=== PATIENT | female | born 1985 | race Caucasian/White ===

== ENCOUNTER 2023-07-07 18:03 | Emergency (ER) | payer SELFPAY ==
[2023-07-07 18:45] VITALS: BP 123/81; PULSE 84; RESP 16; TEMP 36.9; O2SAT 99; BMI 27.6
[2023-07-07 19:18] VITALS: BP 123/81; PULSE 84; RESP 16; TEMP 36.9; O2SAT 99
--- NOTE | 2023-07-07 19:27 | EXP.UTC ---
Discharge Plan Disposition Patient Disposition: Home, Self-Care Condition: Good Prescriptions Prescriptions: New benzonatate 100 mg capsule 100 mg PO TID PRN (Reason: cough) Qty: 30 0RF methylprednisolone [Medrol (Jose)] 4 mg tablets,dose pack See Rx Instructions .Route .COMPLEX 6 Days Qty: 21 0RF Rx Instructions: taper pack; amoxicillin-pot clavulanate 875-125 mg Tablet 1 tab PO Q12H Qty: 20 0RF guaifenesin [Mucinex] 600 mg tablet extended release 12hr 1,200 mg PO BID PRN (Reason: cough) Qty: 20 0RF Referrals Follow up/Referrals: Provider,Referral, MD [Primary Care Provider] - See instructions Activity Restrictions/Add. Instructions Additional Instructions/Restrictions: *Monitor Temp, Over the counter Motrin or Tylenol as directed/as needed Tylenol every 4 hours and Motrin every 6 hours (as long as your family doctor has told you that you can take it) for fever or pain. and straight to ER if unable to lower temp less than 101.0 after medication given *Warm salt water gargles may help to soothe the throat *Throat Lozenges? *Warm fluids like tea with honey may help to soothe the throat? *Sleep elevated *Humidifier/Vaporizer *Take medication as prescribed Follow up IMMEDIATELY for new or worsening symptoms or no Noticeable improvement over the next 48-72 hours. 911 for difficulty breathing or swallowing Clinical Impressions Clinical Impression: Sinusitis Qualifiers: Sinusitis location: unspecified location Chronicity: unspecified Qualified Code(s): J32.9 - Chronic sinusitis, unspecified Instructions Patient Instructions: Sinusitis, DI for Sinusitis Discharge ED Provider: Tyra Dyer [facility] [place] General Stated complaint: possible sinus congestion Mode of Arrival: Ambulatory Source of Information: Patient Limitations: No Limitations Time Seen by Provider: 07/07/23 19:27 Description of Symptoms (Recalled from Triage Doc. by RN): PATIENT C/O SINUS PRESSURE/DRAINAGE AND COUGH X 1 WEEK HEENT Symptoms (Recalled from RN notes): Yes Resp Symptoms (Recalled from RN notes): No Skin Symptoms (Recalled from RN notes): No MS Symptoms (Recalled from RN notes): No Functional Status (Recalled from RN notes): WNL History of Present Illness Provider Complaint: Patient states that for the last week she has been having sinus pain and pressure along with dry cough states that she thinks she may have a sinus infection that is trying to move into her chest area so she came in to get checked Related Data Previous Rx's Medication Instructions Recorded amoxicillin 875 mg-potassium 1 tab PO Q12H #20 tabs 07/07/23 clavulanate 125 mg tablet benzonatate 100 mg capsule 100 mg PO TID PRN cough #30 caps 07/07/23 guaifenesin 600 mg tablet, 1,200 mg PO BID PRN cough #20 tabs 07/07/23 extended release 12 hr (Mucinex) methylprednisolone 4 mg tablets in See Rx Instructions .Route 07/07/23 a dose pack (Medrol (Jose)) .COMPLEX 6 days #21 tabs Allergies Allergy/AdvReac Type Severity Reaction Status Date / Time No Known Allergies Allergy Verified 07/07/23 18:54 Worker's Comp Is this a Worker's Comp case?: No [facility] Disclaimer: The information contained in this section may have been updated after the patient was seen, as this information can be updated by other users. Medical History (Updated 07/07/23 @ 19:32 by Tyra Dyer APRN) Anxiety Depression Endometriosis Endometriosis determined by laparoscopy Social History Smoking Status: Unknown if ever smoked alcohol intake: never current occupational status: employed Travel in the last 8 weeks: None ROS Obtained: Yes All systems reviewed & no additional complaints except as documented and Yes Systems reviewed as appropriate & no additional complaints except as documented Constitutional Constitutional: Reports system reviewed and no additional complaints, except as documented and Report
[2023-07-07 19:40] LABS: UTC Pregnancy Test, Urine Negative (Negative)
== END 2023-07-07 19:44 | disposition home or self-care (01) ==
PROVIDERS: Emergency Provider Nurse Practitioner
DX: J01.90 Acute sinusitis, unspecified (principal); R05.9 Cough, unspecified; R09.81 Nasal congestion; R09.82 Postnasal drip
CPT/HCPCS: 81025; 99204; 99212; G0463

== ENCOUNTER 2023-08-11 08:47 | Emergency (ER) | payer SELFPAY ==
[2023-08-11 09:05] VITALS: BP 138/81; PULSE 95; RESP 20; TEMP 36.9; O2SAT 99; BMI 26.2
--- NOTE | 2023-08-11 09:10 | EXP.UTC ---
Discharge Plan Disposition Patient Disposition: Home, Self-Care Condition: Good Prescriptions Prescriptions: New methylprednisolone 4 mg Tablets,Dose Pack 4 mg PO DIRECTED 6 Days Qty: 21 0RF Rx Instructions: Take 1 pack as directed for 6 days No Action benzonatate 100 mg capsule 100 mg PO TID PRN (Reason: cough) Qty: 30 0RF methylprednisolone [Medrol (Jose)] 4 mg tablets,dose pack See Rx Instructions .Route .COMPLEX 6 Days Qty: 21 0RF Rx Instructions: taper pack; amoxicillin-pot clavulanate 875-125 mg Tablet 1 tab PO Q12H Qty: 20 0RF guaifenesin [Mucinex] 600 mg tablet extended release 12hr 1,200 mg PO BID PRN (Reason: cough) Qty: 20 0RF Referrals Follow up/Referrals: Provider,Referral, MD [Primary Care Provider] - See instructions Activity Restrictions/Add. Instructions Additional Instructions/Restrictions: Try to identify and avoid contact with the offending substance. Don't start the oral steroids until tomorrow. Follow up with your regular doctor. GO TO THE ER FOR ANY WORSENING SYMPTOMS OR CONCERNS Clinical Impressions Clinical Impression: Allergic reaction Stand Alone Forms Stand Alone Forms: Work/School Release Instructions Patient Instructions: DI for General Allergic Reactions, Dexamethasone Injection, Methylprednisolone Discharge ED Provider: Shawn Baker [facility] General Stated complaint: rash and swelling on right side of neck and face Time Seen by Provider: 08/11/23 09:10 History of Present Illness Provider Complaint: She states that for the past 1 day she has had a pruritic rash on her chest, arms, legs and face. She has had puffiness of the right side of her face also. Related Data Previous Rx's Medication Instructions Recorded amoxicillin 875 mg-potassium 1 tab PO Q12H #20 tabs 07/07/23 clavulanate 125 mg tablet benzonatate 100 mg capsule 100 mg PO TID PRN cough #30 caps 07/07/23 guaifenesin 600 mg tablet, 1,200 mg PO BID PRN cough #20 tabs 07/07/23 extended release 12 hr (Mucinex) methylprednisolone 4 mg tablets in See Rx Instructions .Route 07/07/23 a dose pack (Medrol (Jose)) .COMPLEX 6 days #21 tabs methylprednisolone 4 mg tablets in 4 mg PO DIRECTED 6 days #21 tabs 08/11/23 a dose pack Allergies Allergy/AdvReac Type Severity Reaction Status Date / Time No Known Allergies Allergy Verified 07/07/23 18:54 [facility] Disclaimer: The information contained in this section may have been updated after the patient was seen, as this information can be updated by other users. Medical History (Updated 08/11/23 @ 09:27 by Shawn Baker APRN) Anxiety Depression Endometriosis Endometriosis determined by laparoscopy Social History (Updated 07/07/23 @ 19:41 by Tyra Dyer APRN) Smoking Status: Unknown if ever smoked alcohol intake: never current occupational status: employed Travel in the last 8 weeks: None ROS Obtained: Yes All systems reviewed & no additional complaints except as documented Constitutional Constitutional: Denies chills and Denies fever(s) Eyes Eyes: Denies eye discharge ENT Ears, Nose, Mouth, and Throat: Denies dizziness, Denies otalgia and Denies sore throat Cardiovascular Cardiovascular: Denies chest pain Respiratory Respiratory: Denies shortness of breath, Denies chest congestion, Denies cough, Denies stridor and Denies wheezing Gastrointestinal Gastrointestingal: Denies nausea or vomiting Musculoskeletal Musculoskeletal: Reports system reviewed and no additional complaints, except as documented and Denies arthralgias Integumentary/Breasts Skin/Breast: Reports as per HPI and Reports rash Neurologic Neurologic: Denies dizziness and Denies paresthesias Allergic/Immunologic Allergic/Immunologic: Denies wheezing Physical Exam General General appearance: alert and in no apparent distress Head Head exam: atraumatic, normocephalic and normal inspection Eye Eye exam: Present normal appearance, PERRL and EOMI ENT ENT exam: Present normal exam, normal oropharynx, mucous membranes moist, TM's normal bilaterally and normal external ear exam Neck Neck exam: Present normal inspection, full ROM and trachea midline; Absent meningismus or lymphadenopathy Chest Chest inspection: Present normal inspection and symmetric chest wall rise; Absent tenderness Respiratory Respiratory exam: Present normal lung sounds bilaterally; Absent respiratory distress Cardiovascular Cardiovascular exam: Present regular rate and normal rhythm; Absent JVD Abdominal Exam Abdominal exam: Present soft and normal bowel sounds; Absent distention, tenderness or guarding Extremities Exam Extremities exam: Present normal inspection, full ROM and normal capillary refill; Absent calf tenderness Back Exam Back exam: Present normal inspection; Absent tenderness Neurological Exam Neurological exam: Present alert and oriented X3 Psychiatric Psychiatric exam: Present normal affect and normal mood Skin Skin exam: Present rash (there are maculopapular lesions on her chest, anterior neck, and abdomen. ) Lymphatic Lymphatic Findings: no adenopathy Medical Decision Making Medical Records Medical records reviewed: No I reviewed the patient's medical records. Shmuel Inquiry Pt receiving controlled substance: No
[2023-08-11] MEDS: DEXAMETHASONE 4MG/ML 1ML VIAL 8 MG IM (09:30)
[2023-08-11 09:31] VITALS: BP 138/81; PULSE 95; RESP 20; TEMP 36.9; O2SAT 99
== END 2023-08-11 09:43 | disposition home or self-care (01) ==
PROVIDERS: Emergency Provider Nurse Practitioner Family
DX: T78.40XA Allergy, unspecified, initial encounter (principal); R21 Rash and other nonspecific skin eruption; R22.0 Localized swelling, mass and lump, head
CPT/HCPCS: 96372; 99212; 99214; G0463

== ENCOUNTER 2023-09-08 09:32 | Emergency (ER) | payer OTHER, SELFPAY ==
--- NOTE | 2023-09-08 09:42 | EXP.UTC ---
Discharge Plan Disposition Patient Disposition: Home, Self-Care Condition: Good Prescriptions Prescriptions: New azithromycin [Zithromax Z-Jose] 250 mg tablet See Rx Instructions .ROUTE .COMPLEX Qty: 6 0RF Rx Instructions: For 250 mg dose pack: take 500 mg today (day 1), then 250 mg for 4 days (days 2-5) prednisone 20 mg tablet 20 mg PO BID Qty: 10 0RF No Action buspirone 5 mg tablet 5 mg PO TID Patient Comments: TAKE 1 TABLET BY MOUTH THREE TIMES DAILY NEEDED (ANXIETY) sertraline 25 mg tablet 25 mg PO DAILY Patient Comments: TAKE 1 TABLET BY MOUTH ONCE DAILY Fawad 24 Fe 1 mg-20 mcg (24)/75 mg (4) tablet 1 tab PO DAILY Patient Comments: TAKE 1 TABLET BY MOUTH ONCE DAILY Referrals Follow up/Referrals: Thomas Friend PA [Primary Care Provider] - See instructions Clinical Impressions Clinical Impression: Acute bacterial tonsillitis Stand Alone Forms Stand Alone Forms: Work/School Release Instructions Patient Instructions: DI for Pharyngitis/Tonsillopharyngitis -- Adult Discharge ED Provider: Jelena Cerrato [facility] [place] General Stated complaint: st ba Time Seen by Provider: 09/08/23 11:07 History of Present Illness Provider Complaint: Sore throat, body aches, chills X 1 day. She works at a daycare. Low-grade fever. Onset (ago): day(s) (1) Relieving factors: none Exacerbating factors: none Associated symptoms: fever/chills and headaches Treatments prior to arrival: none Related Data Home Medications Medication Instructions Recorded Confirmed buspirone 5 mg tablet 5 mg PO TID 09/08/23 09/08/23 norethindrone 1 mg-ethinyl 1 tab PO DAILY 09/08/23 09/08/23 estradiol 20 mcg (24)-iron 75 mg (4) tablet (Fawad 24 Fe) sertraline 25 mg tablet 25 mg PO DAILY 09/08/23 09/08/23 Previous Rx's Medication Instructions Recorded azithromycin 250 mg tablet See Rx Instructions PO .COMPLEX #6 09/08/23 (Zithromax Z-Jose) tabs prednisone 20 mg tablet 20 mg PO BID #10 tabs 09/08/23 Allergies Allergy/AdvReac Type Severity Reaction Status Date / Time No Known Allergies Allergy Verified 09/08/23 11:12 [facility] Disclaimer: The information contained in this section may have been updated after the patient was seen, as this information can be updated by other users. Medical History (Updated 09/08/23 @ 11:30 by RENY Lyons) Anxiety Depression Endometriosis Endometriosis determined by laparoscopy Social History Smoking Status: Unknown if ever smoked alcohol intake: never current occupational status: employed Travel in the last 8 weeks: None ROS Obtained: Yes All systems reviewed & no additional complaints except as documented Constitutional Constitutional: Reports body ache, Reports chills, Reports fever(s) and Reports malaise Eyes Eyes: Denies eye discharge ENT Ears, Nose, Mouth, and Throat: Denies dizziness, Denies otalgia and Reports sore throat Cardiovascular Cardiovascular: Denies chest pain Respiratory Respiratory: Denies shortness of breath, Denies chest congestion, Denies cough, Denies stridor and Denies wheezing Gastrointestinal Gastrointestingal: Denies nausea or vomiting Musculoskeletal Musculoskeletal: Reports system reviewed and no additional complaints, except as documented and Denies arthralgias Integumentary/Breasts Skin/Breast: Reports system reviewed and no additional complaints, except as documented Neurologic Neurologic: Denies dizziness and Denies paresthesias Allergic/Immunologic Allergic/Immunologic: Denies wheezing Physical Exam General General appearance: alert and in no apparent distress Head Head exam: atraumatic, normocephalic and normal inspection Eye Eye exam: Present normal appearance, PERRL and EOMI ENT ENT exam: Present normal exam, mucous membranes moist, TM's normal bilaterally and normal external ear exam Expanded ENT Exam Throat exam: Present tonsillar erythema, tonsillomegaly and tonsillar exudate Neck Neck exam: Present normal inspection, full ROM and trachea midline; Absent meningismus or lymphadenopathy Chest Chest inspection: Present normal inspection and symmetric chest wall rise; Absent tenderness Respiratory Respiratory exam: Present normal lung sounds bilaterally; Absent respiratory distress Cardiovascular Cardiovascular exam: Present regular rate and normal rhythm; Absent JVD Abdominal Exam Abdominal exam: Present soft and normal bowel sounds; Absent distention, tenderness or guarding Extremities Exam Extremities exam: Present normal inspection, full ROM and normal capillary refill; Absent calf tenderness Back Exam Back exam: Present normal inspection; Absent tenderness Neurological Exam Neurological exam: Present alert and oriented X3 Psychiatric Psychiatric exam: Present normal affect and normal mood Skin Skin exam: Present warm, dry, intact and normal color Lymphatic Lymphatic Findings: no adenopathy Medical Decision Making Shmuel Inquiry Pt receiving controlled substance: No Lab Data Lab results reviewed: Yes I reviewed the patient's lab results.
[2023-09-08 11:00] VITALS: BP 134/80; PULSE 83; RESP 18; TEMP 36.7; O2SAT 99; BMI 26.2
[2023-09-08 11:30] LABS: UTC Strep Screen (Rapid) Negative (Negative)
[2023-09-08 11:31] LABS: UTC Influenza A Antigen Negative (Negative); UTC Influenza B Antigen Negative (Negative)
[2023-09-08 11:51] VITALS: BP 134/80; PULSE 82; RESP 18; TEMP 36.7; O2SAT 99
[2023-09-08 12:18] LABS: Coronavirus 19, PCR Not Detected (NotDetected); Influenza A, PCR Not Detected (NotDetected); Influenza B, PCR Not Detected (NotDetected)
== END 2023-09-08 11:51 | disposition home or self-care (01) ==
PROVIDERS: Emergency Provider Physician Assistant; PCP Physician Assistant
DX: J03.80 Acute tonsillitis due to other specified organisms (principal); R50.9 Fever, unspecified; M79.18 Myalgia, other site
CPT/HCPCS: 87636; 87804; 87880; 99212; 99214; G0463

== ENCOUNTER 2023-10-17 09:38 | Outpatient (CLI) | payer BC, SELFPAY ==
[2023-10-22 12:40] LABS: F004-IgE Wheat 1.73 kU/L (Class III); F010-IgE Sesame Seed 1.89 kU/L (Class III); F013-IgE Peanut 2.01 kU/L (Class III); F014-IgE Soybean 1.67 kU/L (Class III); F338-IgE Scallop 1.23 kU/L (Class II); F352 IgE Ara h8 0.11 kU/L (Class 0/I); F447 IgE Ara h6 0.13 kU/L (Class 0/I)
== END 2023-10-17 23:59 ==
PROVIDERS: Visit Provider Allergy & Immunology
DX: R10.84 Generalized abdominal pain (principal); Z91.018 Allergy to other foods
CPT/HCPCS: 36415; 86003; 86008

== ENCOUNTER 2023-11-28 12:43 | Outpatient (CLI) | payer BC, SELFPAY ==
[2023-11-29 15:29] LABS: Deamidated Gliadin Abs, IgA 4 units (0-19); Deamidated Gliadin Abs, IgG 2 units (0-19); Tissue Transglutaminase IgA Ab <2 U/mL (0-3); Tissue Transglutaminase IgG Ab <2 U/mL (0-5)
[2023-11-29 18:14] LABS: Endomysial IgA Antibody Negative (Negative)
[2023-12-01 10:53] LABS: Reticulin IgA Antibody Negative titer (Neg:<1:2.5)
== END 2023-11-28 23:59 | disposition home or self-care (01) ==
LOC: LAB 12:44
PROVIDERS: PCP Physician Assistant; Visit Provider Allergy & Immunology
DX: T78.1XXA Other adverse food reactions, not elsewhere classified, initial encounter (principal); R10.9 Unspecified abdominal pain
CPT/HCPCS: 36415; 83516; 86003; 86255; 86256